=== PATIENT | female | born 2000 | race Two or more races ===

== ENCOUNTER 2020-04-18 13:28 | Emergency (ER) | payer BC ==
--- NOTE | 2020-04-18 13:31 | PDOC ---
Rapid Medical Evaluation Time Seen by Provider: 04/18/20 13:30 Medical Evaluation: Allergies Allergy/AdvReac Type Severity Reaction Status Date / Time benzoyl peroxide Allergy Verified 07/01/16 12:23 04/18/20 13:30 I have performed a brief in-person evaluation of this patient. The patient presents with a chief complaint of:neck pain after fall Thursday night while intoxicated. No LOC, KEARNEY, dizziness, n/v Pertinent physical exam findings:well waldemar and stable I have ordered the following:nothing The patient will proceed to the ED for further evaluation. Discharge Disposition - Diagnosis Neck pain - Referrals - Patient Instructions - Post Discharge Activity
[2020-04-18 13:32] VITALS: BP 112/79; PULSE 82; TEMP 97.9; BMI 25.7
--- NOTE | 2020-04-18 13:44 | PDOC ---
History of Present Illness - General Chief Complaint: Pain, Acute Stated Complaint: HEAD INJURY Time Seen by Provider: 04/18/20 13:30 - History of Present Illness Initial Comments: 04/18/20 13:42 19-year-old female without comorbidities presents for evaluation of right-sided neck pain after a fall 3 days ago while intoxicated. Since her fall she is had no post injury nausea vomiting visual changes or headaches. She is feeling well with some right-sided neck pain without radicular symptoms loss of bowel bladder function or saddle paresthesias. Past History - Medical History Allergies/Adverse Reactions: Allergies Allergy/AdvReac Type Severity Reaction Status Date / Time benzoyl peroxide Allergy Verified 04/18/20 13:32 Home Medications: Ambulatory Orders Sulfamethoxazole/Trimethoprim [Bactrim Ds -] 1 tab PO BID #6 tablet 07/03/16 Cyclobenzaprine HCl [Flexeril 10 mg] 10 mg PO HS PRN #10 tablet 04/18/20 Ibuprofen [Motrin -] 600 mg PO TID #30 tablet 04/18/20 COPD: No - Psycho-Social/Smoking History Smoking History: Never smoked Information on smoking cessation initiated: No - Substance Abuse Hx (Audit-C & DAST Scrn) How often the patient has a drink containing alcohol: Monthly or less Number of drinks the patient has on a typical day: 1 or 2 How often the patient has six or more drinks on one occasion: Never Score: In Men: 4 or > Positive; In Women: 3 or > Positive: 1 Screen Result (Pos requires Nsg. Audit-10AR): Negative In the last yr the pt used illegal drug/Rx for NonMed reason: No Score: Yes response is considered Positive: 0 Screen Result (Positive result requires Nsg. DAST-10): Negative Review of Systems - Review of Systems Musculoskeletal: Yes: Neck Pain *Physical Exam - Vital Signs Last Vital Signs Temp Pulse Resp BP Pulse Ox 97.9 F 82 19 112/79 99 04/18/20 13:30 04/18/20 13:30 04/18/20 13:30 04/18/20 13:30 04/18/20 13:30 - Physical Exam 04/18/20 13:42 Cervical spine skin color and temperature normal range of motion is slightly limited. There is no midline tenderness. Mild bilateral paracervical musculature spasm and tenderness. 5 out of 5 strength bilateral upper extremities without gross sensorimotor deficits neurovascular intact. Medical Decision Making - Medical Decision Making 04/18/20 13:42 Discussed use of Flexeril and Motrin for pain cervical spine strain follow-up with Ortho I have reviewed the pathophysiology with the patient. They are in agreement with the treatment plan all questions were answered to their satisfaction. Understanding for follow-up without fail was also conveyed to the patient. Again they are in agreement. 04/18/20 13:43 Patient assures me there is no chance of . Discharge - Discharge Information Problems reviewed: Yes Clinical Impression/Diagnosis: Neck pain, Cervical strain Condition: Stable Disposition: HOME - Admission No - Additional Discharge Information Prescriptions: Cyclobenzaprine HCl [Flexeril 10 mg] 10 mg PO HS PRN #10 tablet PRN Reason: Muscle Spasms Ibuprofen [Motrin -] 600 mg PO TID #30 tablet - Follow up/Referral Referrals: Roosevelt Edmonds DO [Staff Physician] - - Patient Discharge Instructions Additional Instructions: Please take the medication as directed. Without fail follow-up with orthopedic surgery in 1 to 2 days for further evaluation and treatment options and return to the emergency room should symptoms worsen. - Post Discharge Activity
== END 2020-04-18 13:46 | disposition home or self-care (01) ==
LOC: JERFT 13:28
DX: M54.2 Cervicalgia (principal); S16.1XXA Strain of muscle, fascia and tendon at neck level, initial encounter
CPT/HCPCS: 99283-25

== ENCOUNTER 2022-05-11 22:59 | Emergency (ER) | payer BC ==
[2022-05-11 23:11] VITALS: BP 113/80; PULSE 858; RESP 20; TEMP 98.3; BMI 27.4
[2022-05-12] MEDS ORDERED: ACETAMINOPHEN 500 MG TABLET (FP) PO ONE (00:10)
[2022-05-12] MEDS ORDERED: ACETAMINOPHEN 325 MG TABLET (FP) ONE (00:23)
== END 2022-05-12 01:53 | disposition home or self-care (01) ==
LOC: JER 22:59
DX: S29.9XXA Unspecified injury of thorax, initial encounter (principal); V89.0XXA Person injured in unspecified motor-vehicle accident, nontraffic, initial encounter
CPT/HCPCS: 71046-TC-FY; 71101-TC-LT-FY; 84703; 99284-25

== ENCOUNTER 2022-08-08 19:58 | Emergency (ER) | payer BC ==
[2022-08-08 20:16] VITALS: BP 108/79; PULSE 81; RESP 16; TEMP 99.1; BMI 27.1
[2022-08-08 20:55] LABS: HEMATOCRIT 36.7 % (32.4-45.2); HEMOGLOBIN 12.9 G/dL (10.7-15.3); MCH 31.6 pg (25.7-33.7); MCHC 35.2 g/dl (32.0-36.0); MEAN CELL VOLUME 89.7 fl (80-96); MEAN PLT VOLUME 9.2 fl (7.5-11.1); PLATELET COUNT 228.3 10^3/uL (134-434); RBC 4.09 10^6/uL (3.60-5.2); RDW 12.8 % (11.6-15.6); WHITE BLOOD COUNT 9.9 10^3/uL (4.0-10.8)
[2022-08-08 21:08] LABS: ALBUMIN 4.2 g/dl (3.4-5.0); BILIRUBIN,TOTAL 0.4 mg/dl (0.2-1); CALCIUM 9.5 mg/dl (8.5-10); CREATININE 0.8 mg/dl (0.55-1.3); TOT PROT 7.1 g/dl (6.4-8.2)
== END 2022-08-08 21:24 | disposition home or self-care (01) ==
LOC: FER 19:58
DX: R10.30 Lower abdominal pain, unspecified (principal)
CPT/HCPCS: 36415; 80053; 81003; 81025; 84443; 85027; 99283-25

== ENCOUNTER 2023-01-06 17:50 | Emergency (ER) | payer BC ==
[2023-01-06 18:32] VITALS: BP 115/78; PULSE 98; RESP 20; TEMP 98.2; BMI 22.1
[2023-01-06] MEDS ORDERED: ALBUTEROL SO4 2.5/IPRATROPIUM 0.5 INH SOL 3 ML VIAL.NEB. NEB ONE ×2 (20:06→20:23)
== END 2023-01-06 21:45 | disposition home or self-care (01) ==
LOC: FER 17:50
PROC: 3E0F7GC Introduction of Other Therapeutic Substance into Respiratory Tract, Via Natural or Artificial Opening (ICD-10-PCS; principal; 2023-01-06)
DX: J20.9 Acute bronchitis, unspecified (principal); R50.9 Fever, unspecified; R06.02 Shortness of breath
CPT/HCPCS: 71046-TC-FY; 81025; 99284-25

== ENCOUNTER 2024-09-29 04:31 | Emergency (ER) | payer BC, OTHER ==
[2024-09-29 04:40] VITALS: BP 119/56; PULSE 107; RESP 18; TEMP 100.6; BMI 22.2
[2024-09-29] MEDS ORDERED: ACETAMINOPHEN 325 MG TABLET (FP) ONE (05:05)
[2024-09-29] MEDS: ACETAMINOPHEN 325 MG TABLET (FP) PO ONE (05:06)
== END 2024-09-29 05:38 | disposition home or self-care (01) ==
LOC: FER 04:31
DX: J10.1 Influenza due to other identified influenza virus with other respiratory manifestations (principal); R05.9 Cough, unspecified; R50.9 Fever, unspecified; M79.10 Myalgia, unspecified site; B34.9 Viral infection, unspecified; Z20.822 Contact with and (suspected) exposure to COVID-19
CPT/HCPCS: 0241U-QW; 99283-25